=== PATIENT | male | born 1965 | race Asian ===

== ENCOUNTER 2024-06-05 18:11 | Inpatient (IN) | payer OTHER ==
[~2024-06-05] VITALS: Ht 170.2 cm; Wt 63.7 kg
[2024-06-05] MEDS: IV NS 0.9% 1,000 ML BAG IV ONE ×2 (18:59→20:54)
[2024-06-05 19:08] LABS: BASOPHILS # (AUTO) 0.5 K/uL (0.0-0.2); BASOPHILS % (AUTO) 1.9 % (0.0-2.0); HEMATOCRIT 45 % (39-51); HEMOGLOBIN 14.8 g/dL (13.5-17.5); LYMPHOCYTES # (AUTO) 0.6 K/uL (0.8-4.8); LYMPHOCYTES % (AUTO) 2.1 % (20.0-44.0); MEAN CORPUSCULAR HEMOGLOBIN 33 PG (26.0-33.0); MEAN CORPUSCULAR HGB CONC 33 g/dl (31.0-36.0); MEAN CORPUSCULAR VOLUME 100 fL (80-96); MONOCYTES # (AUTO) 2.1 K/uL (0.1-1.30); MONOCYTES % (AUTO) 7.3 % (2.0-12.0); NEUTROPHILS # (AUTO) 25.3 K/uL (1.8-8.9); NEUTROPHILS % (AUTO) 88.7 % (43.0-81.0); PLATELET COUNT (AUTO) 278 K/uL (150-450); RED BLOOD CELL COUNT(AUTO) 4.52 MIL/uL (4.5-6.0); RED CELL DISTRIBUTION WIDTH 13.4 % (11.5-15.0); WHITE BLOOD COUNT (AUTO) 28.5 K/uL (4.3-11.0)
[2024-06-05] MEDS ORDERED: BISA10SU11 RC (19:34)
[2024-06-05] MEDS ORDERED: THIA100T74 PO (19:34)
[2024-06-05] MEDS ORDERED: MELA10TA7 SL (19:34)
[2024-06-05] MEDS ORDERED: NA P133E RC (19:34)
[2024-06-05] MEDS ORDERED: QUET200T PO (19:34)
[2024-06-05] MEDS ORDERED: MAGN400O6 PO (19:34)
[2024-06-05] MEDS ORDERED: RISP3TAB5 PO (19:34)
[2024-06-05] MEDS ORDERED: LOSA25TA27 PO (19:34)
[2024-06-05] MEDS ORDERED: SENN8.6T19 PO (19:34)
[2024-06-05] MEDS ORDERED: TEMA15CA5 PO (19:34)
[2024-06-05] MEDS ORDERED: QUET100T PO (19:34)
[2024-06-05] MEDS ORDERED: GUAN1TAB PO (19:34)
[2024-06-05] MEDS ORDERED: FOLI0.8T3 PO (19:34)
[2024-06-05] MEDS ORDERED: ACET325T53 PO (19:34)
[2024-06-05] MEDS ORDERED: ACET-73 PO (19:34)
[2024-06-05] MEDS ORDERED: LORA-259 PO (19:34)
[2024-06-05] MEDS ORDERED: MULT9LIQ6 PO (19:34)
[2024-06-05] MEDS ORDERED: POLY17PO29 PO (19:34)
[2024-06-05] MEDS ORDERED: DIVA500T2 PO (19:34)
[2024-06-05] MEDS ORDERED: GABA300C PO (19:34)
[2024-06-05 19:47] LABS: CALCIUM, SERUM 9.5 mg/dL (8.5-10.1); CARBON DIOXIDE 28 mmol/L (21-32); CHLORIDE 101 mmol/L (98-107); CREATININE 1.2 mg/dL (0.6-1.3); GLUCOSE 122 mg/dL (74-106); POTASSIUM 4.2 mmol/L (3.5-5.1); SODIUM SERUM 140 mmol/L (136-145); UREA NITROGEN, BLOOD 19 mg/dL (7-18)
[2024-06-05 19:48] LABS: SERUM AMMONIA 38 umol/L (11-32)
[2024-06-05 19:49] LABS: ALCOHOL, BLOOD < 3 mg/dL (0-10)
[2024-06-05 19:56] LABS: ALANINE AMINOTRANSFERASE 29 U/L (12-78); ALBUMIN 3.5 g/dL (3.4-5.0); ALKALINE PHOSPHATASE 84 U/L (46-116); ASPARTATE AMINOTRANSFERASE 17 U/L (15-37); BILIRUBIN,DIRECT 0.1 mg/dL (0.0-0.2); BILIRUBIN,TOTAL 0.5 mg/dL (0.2-1.0); TOTAL PROTEIN, SERUM 7.1 g/dL (6.4-8.2)
[2024-06-05 19:57] LABS: APPEARANCE,URINE CLEAR (CLEAR); BILIRUBIN,URINE NEGATIVE (NEGATIVE); BLOOD, URINE NEGATIVE Ery/uL (NEGATIVE); COLOR,URINE YELLOW (YELLOW); KETONES,URINE NEGATIVE (NEGATIVE); LEUKOCYTE ESTERASE ,URINE NEGATIVE (NEGATIVE); NITRITE, URINE NEGATIVE (NEGATIVE); PROTEIN,URINE NEGATIVE (NEGATIVE); UGLUCOSE NEGATIVE (NEGATIVE)
[2024-06-05 20:02] LABS: INR 0.97 (0.91-1.10); LACTIC ACID 3.2 mmol/L (0.4-2.0); PARTIAL THROMBOPLASTIN TIME 27.1 SEC (24.3-34.3); PROTHROMBIN TIME 10.3 SECS (9.2-11.1)
[2024-06-05 20:03] LABS: ADD URINE CULTURE NO; BACTERIA,URINE None seen /HPF (None Seen); RBC,URINE 0-2 /HPF (0-2); SQUAMOUS EPITHELIAL CELL,UR 0-2 /HPF (None Seen); WBC,URINE 0-2 /HPF (0-3)
[2024-06-05] MEDS: PIPERACILLIN /TAZOBACTAM 3.375 G in IV D5W 50 ML IV ONE (20:06)
[2024-06-05 20:12] LABS: AMPHETAMINE, URINE NEGATIVE (NEGATIVE); BARBITURATE, URINE NEGATIVE (NEGATIVE); BENZODIAZEPINE, URINE NEGATIVE (NEGATIVE); CANNABINOID, URINE NEGATIVE (NEGATIVE); COCCAINE, URINE NEGATIVE (NEGATIVE); OPIATE, URINE NEGATIVE (NEGATIVE); PHENCYCLIDINE SCREEN,URINE NEGATIVE (NEGATIVE)
[2024-06-05] MEDS: VANCOMYCIN 1 GM in IV D5W 250 ML IV ONE (20:41)
[2024-06-05] MEDS: IV NS 0.9% 500 ML BAG IV ONE (20:55)
[2024-06-05] MEDS ORDERED: LORAZEPAM 1 MG TABLET PO PRN (23:00)
[2024-06-05] MEDS: ENOXAPARIN SODIUM 40 MG/0.4 ML DISP.SYRIN SQ SCH (23:00)
[2024-06-05] MEDS ORDERED: MAG HYDROX/AL HYDROX/SIMETH 30 ML UDC PO PRN (23:00)
[2024-06-05] MEDS ORDERED: ONDANSETRON HCL/PF 4 MG/2 ML VIAL IVP PRN (23:00)
[2024-06-05] MEDS ORDERED: TEMAZEPAM 15 MG CAPSULE PO PRN (23:00)
[2024-06-05 23:18] LABS: BAND % (MANUAL) 1 % (0.0-5.0); LYMPHOCYTES % (MANUAL) 3 % (16-48); MONOCYTES % (MANUAL) 7 % (0-11.0); NEUTROPHILS % (MANUAL) 89 (42-76)
[2024-06-05 23:19] LABS: ANISOCYTOSIS 1+; PLATELET ESTIMATE ADEQUATE
[2024-06-06 00:20] VITALS: BP 117/75; TEMP 98.2; O2SAT 96
[2024-06-06] MEDS: SENNOSIDES 8.6 MG TABLET PO SCH (00:56)
[2024-06-06] MEDS: GABAPENTIN 300 MG CAPSULE PO SCH (00:56)
[2024-06-06] MEDS: DIVALPROEX SODIUM 500 MG TABLET.DR PO SCH (00:56)
[2024-06-06] MEDS: QUETIAPINE FUMARATE 100 MG TABLET PO SCH ×2 (00:57→09:54)
[2024-06-06] MEDS: VANCOMYCIN HCL 125 MG/2.5 ML ORAL.SUSP PO SCH ×2 (01:00→06:00)
[2024-06-06] MEDS ORDERED: PIPERACI/TAZO 3.375GM/D5W 50ML PB IV ONE ×2 (01:22→05:43)
[2024-06-06] MEDS: ZOSYN IVPB 3.375 G in IV D5W 50ml IV SCH (01:22)
[2024-06-06] MEDS: IV NS 0.9% 1,000 ML IV PRN (01:30)
[2024-06-06 07:41] LABS: BASOPHILS # (AUTO) 0.1 K/uL (0.0-0.2); BASOPHILS % (AUTO) 0.4 % (0.0-2.0); EOSINOPHILS % (AUTO) 0.1 % (0.0-6.0); HEMATOCRIT 37 % (39-51); HEMOGLOBIN 12.6 g/dL (13.5-17.5); LYMPHOCYTES # (AUTO) 1.7 K/uL (0.8-4.8); LYMPHOCYTES % (AUTO) 10.6 % (20.0-44.0); MEAN CORPUSCULAR HEMOGLOBIN 34 PG (26.0-33.0); MEAN CORPUSCULAR HGB CONC 34 g/dl (31.0-36.0); MEAN CORPUSCULAR VOLUME 100 fL (80-96); MONOCYTES # (AUTO) 1.3 K/uL (0.1-1.30); MONOCYTES % (AUTO) 8.1 % (2.0-12.0); NEUTROPHILS % (AUTO) 80.8 % (43.0-81.0); PLATELET COUNT (AUTO) 261 K/uL (150-450); RED BLOOD CELL COUNT(AUTO) 3.74 MIL/uL (4.5-6.0); RED CELL DISTRIBUTION WIDTH 13.6 % (11.5-15.0); WHITE BLOOD COUNT (AUTO) 16.1 K/uL (4.3-11.0)
[2024-06-06 08:00] VITALS: BP 108/80; TEMP 99.5; O2SAT 97
[2024-06-06 08:06] LABS: CALCIUM, SERUM 8.7 mg/dL (8.5-10.1); CREATININE 0.8 mg/dL (0.6-1.3); MAGNESIUM 1.9 mg/dL (1.8-2.4); PHOSPHORUS 3.4 mg/dL (2.5-4.9); POTASSIUM 3.8 mmol/L (3.5-5.1)
[2024-06-06] MEDS: GUANFACINE HCL 1 MG TABLET PO SCH (09:00)
[2024-06-06] MEDS ORDERED: risperiDONE 0.25 MG TABLET PO SCH (09:00)
[2024-06-06] MEDS: THIAMINE HCL 100 MG TABLET PO SCH (09:54)
[2024-06-06] MEDS: MULTIVIT W/MINERALS 1 TAB TABLET PO SCH (09:54)
[2024-06-06] MEDS: POLYETHYLENE GLYCOL 3350 17 GM POWD.PACK PO SCH (09:55)
[2024-06-06] MEDS: LOSARTAN POTASSIUM 25 MG TABLET PO SCH (09:55)
[2024-06-06] MEDS: FOLIC ACID 1 MG TABLET PO SCH (09:55)
[2024-06-06] MEDS: risperiDONE 1 MG TABLET PO SCH (10:33)
[2024-06-06 12:00] VITALS: BP 120/81; TEMP 99.5; O2SAT 97
[2024-06-06] MEDS: PIPERACILLIN /TAZOBACTAM 3.375 G in IV D5W 100 ML IV SCH (14:43)
[2024-06-06 16:00] VITALS: BP 117/80; TEMP 99.9; O2SAT 96
[2024-06-06 20:01] VITALS: BP 129/70; TEMP 99; O2SAT 96
[2024-06-07 07:00] VITALS: BP 141/98; TEMP 99; O2SAT 97
[2024-06-07 07:30] VITALS: BP 141/98; TEMP 99; O2SAT 97
[2024-06-07 07:33] LABS: BASOPHILS % (AUTO) 0.2 % (0.0-2.0); EOSINOPHILS # (AUTO) 0.2 K/uL (0.0-0.7); EOSINOPHILS % (AUTO) 1.9 % (0.0-6.0); HEMATOCRIT 36 % (39-51); HEMOGLOBIN 12.2 g/dL (13.5-17.5); LYMPHOCYTES # (AUTO) 2.8 K/uL (0.8-4.8); LYMPHOCYTES % (AUTO) 25.3 % (20.0-44.0); MEAN CORPUSCULAR HEMOGLOBIN 34 PG (26.0-33.0); MEAN CORPUSCULAR HGB CONC 33 g/dl (31.0-36.0); MEAN CORPUSCULAR VOLUME 101 fL (80-96); MONOCYTES # (AUTO) 1.1 K/uL (0.1-1.30); MONOCYTES % (AUTO) 10.2 % (2.0-12.0); NEUTROPHILS # (AUTO) 6.9 K/uL (1.8-8.9); NEUTROPHILS % (AUTO) 62.4 % (43.0-81.0); PLATELET COUNT (AUTO) 240 K/uL (150-450); RED BLOOD CELL COUNT(AUTO) 3.62 MIL/uL (4.5-6.0); RED CELL DISTRIBUTION WIDTH 13.4 % (11.5-15.0); WHITE BLOOD COUNT (AUTO) 11.1 K/uL (4.3-11.0)
[2024-06-07 07:35] LABS: CALCIUM, SERUM 8.5 mg/dL (8.5-10.1); CREATININE 0.7 mg/dL (0.6-1.3); MAGNESIUM 1.9 mg/dL (1.8-2.4); PHOSPHORUS 3.2 mg/dL (2.5-4.9); POTASSIUM 3.6 mmol/L (3.5-5.1)
[2024-06-07] MEDS: ACETAMINOPHEN 325 MG TABLET PO PRN (09:59)
[2024-06-07] MEDS ORDERED: VANC125C11 PO (12:33)
[2024-06-07 16:00] VITALS: BP 104/67; TEMP 97.7; O2SAT 97
[2024-06-07 16:30] VITALS: BP 104/67; TEMP 97.7; O2SAT 97
== END 2024-06-07 17:02 | DRG 720 ==
LOC: ER 18:21 → TELE 22:51 → MED 06-06 15:21
PROVIDERS: ADMIT Nurse Practitioner Acute Care; ATTEND Nurse Practitioner Acute Care
DX: A41.9 Sepsis, unspecified organism (principal); G93.41 Metabolic encephalopathy; A04.72 Enterocolitis due to Clostridium difficile, not specified as recurrent; G47.00 Insomnia, unspecified; F29 Unspecified psychosis not due to a substance or known physiological condition; F79 Unspecified intellectual disabilities; Z79.899 Other long term (current) drug therapy; R41.89 Other symptoms and signs involving cognitive functions and awareness
CPT/HCPCS: 36415; 70450-TC; 71045-TC; 71250-TC; 80048-TC; 80076-TC; 81001; 82140-TC; 82962-TC; 83605-TC; 83735-TC; 84100-TC; 84443-TC; 84484-TC; 85025-TC; 85730-TC; 87040-TC; 87081-TC; 89055; 97110-TC; 97530-TC; A4223; G0378; G0480; J1650; J2543; J3370; J7030; J7040; J7050; J7060